=== PATIENT | male | born 1935 | race Caucasian/White ===

== ENCOUNTER → 2017-01-14 | Outpatient (CLI) | payer BC ==
[~2017-01-14] MED LIST: ALL300 PO; AMLO10TA4 PO; ASPEC81 PO; ASPI81TA28 PO; CLOP1TAB15 PO; CRDCD180 PO; LPT/40 PO; MISCCAP80 PO; NTRGSL/4 UT; OMEP40CA PO; PANT40TA2 PO; RANI150T3 PO; SILD100T PO; TNR25 PO
[2017-01-14 12:21] LABS: BASO % 0.3 %; BASO ABS # 0.02 K/uL (0-0.2); COMPLETE YES; EOS % 6.9 %; HEMATOCRIT 42.4 % (42-52); IG% 0.1 %; LYMPH ABS # 2.28 K/uL (1.2-3.4); MEAN CELL VOLUME 94.4 fL (80-100); MEAN CORPUSCULAR HEMOGLOBIN 32.7 pg (25-34); MEAN CORPUSCULAR HGB CONC 34.7 g/dl (32-36); MONO % 11.6 %; NEUT % 48.1 %; PLATELET COUNT 172 K/uL (130-400); RED BLOOD COUNT 4.49 M/uL (4.7-6.1); WHITE BLOOD COUNT 6.91 K/uL (4.8-10.8)
[2017-01-14 17:41] LABS: ALT/SGPT 17 U/L (12-78); BLOOD UREA NITROGEN 37 mg/dl (7-18); BUN/CREATININE RATIO 17.4 (10-20); CALCIUM 9.4 mg/dl (8.5-10.1); CARBON DIOXIDE 27 mmol/L (21-32); CHLORIDE 106 mmol/L (98-107); GLUCOSE 82 mg/dl (70-99); POTASSIUM 4.2 mmol/L (3.5-5.1); SODIUM 142 mmol/L (136-145)
[2017-01-14 17:45] LABS: ALB/GLOB RATIO 1.2 (0.9-2); ALKALINE PHOSPHATASE 112 U/L (45-117); AST/SGOT 18 U/L (15-37)
== END | disposition home or self-care (01) ==
LOC: C.LABPBG 10:44
PROVIDERS: ATTEND Internal Medicine Geriatric Medicine
DX: I25.10 Atherosclerotic heart disease of native coronary artery without angina pectoris (principal); I12.9 Hypertensive chronic kidney disease with stage 1 through stage 4 chronic kidney disease, or unspecified chronic kidney disease; N18.9 Chronic kidney disease, unspecified; E78.5 Hyperlipidemia, unspecified; E55.9 Vitamin D deficiency, unspecified; R10.9 Unspecified abdominal pain; R06.02 Shortness of breath

== ENCOUNTER → 2017-01-16 | Outpatient (CLI) | payer BC ==
--- NOTE | 2017-01-16 10:04 | DIAGNOSTIC IMAGING REPORT ---
CHEST 2 VIEWS ROUTINE CLINICAL HISTORY: Shortness of breath on exertion. COMPARISON STUDY: Chest radiograph March 20, 2015. FINDINGS: Mild lung hyperexpansion is noted. There is no pneumothorax or pleural effusion. There is no consolidation to suggest pneumonia. There is no evidence of pulmonary edema. Extensive anterior osteophytosis is noted on lateral projection. Cardiomediastinal silhouette is stable. IMPRESSION: No acute findings. No change in appearance of the chest. Electronically signed by: Star Daily M.D. 01/16/2017 10:02 AM Dictated Date/Time: 01/16/2017 10:01 AM
--- NOTE | 2017-01-16 10:31 | DIAGNOSTIC IMAGING REPORT ---
ABDOMINAL ULTRASOUND COMPLETE HISTORY: Generalized abdominal pain.. COMPARISON: Abdominal MRI 07/15/2013. Abdomen and pelvis CT 05/03/2013. FINDINGS: Pancreas: The pancreas demonstrates a normal echotexture. Liver: The liver is echogenic consistent with fatty change. Gallbladder: No gallbladder wall thickening. No gallstones. CBD: 5 mm. Kidneys: The right kidney measures 11.3 cm and the left kidney measures 10.6 cm. No hydronephrosis. Multiple bilateral renal cysts are again noted. The largest on the right measures 3.8 cm. The largest left renal cyst measures 6.9 cm and demonstrates a single thin septation. Spleen: Normal in size. Aorta: Normal in caliber. IMPRESSION: 1. Normal gallbladder. No gallstones. 2. Bilateral renal cysts. 3. Mild hepatic steatosis. Electronically signed by: Scar Walsh M.D. 01/16/2017 10:29 AM Dictated Date/Time: 01/16/2017 10:27 AM
== END | disposition home or self-care (01) ==
LOC: C.ULTRBC 09:02
PROVIDERS: ATTEND Internal Medicine Geriatric Medicine
DX: R06.02 Shortness of breath (principal); R10.9 Unspecified abdominal pain; N28.1 Cyst of kidney, acquired

== ENCOUNTER 2017-01-23 16:50 | Emergency (ER) | payer BC ==
[~2017-01-23] VITALS: Ht 170.2 cm; Wt 74.3 kg
[~2017-01-23 16:50] MED LIST changes: -ALL300 PO; -AMLO10TA4 PO; -ASPI81TA28 PO; -MISCCAP80 PO; -PANT40TA2 PO; -RANI150T3 PO; -TNR25 PO
[2017-01-23 16:56] VITALS: TEMP 36.7; Ht 170.2 cm; Wt 74.3 kg
[2017-01-23] MEDS ORDERED: ASPIRIN 81 MG CHEW PO STA (17:10)
[2017-01-23] MEDS ORDERED: ALUMINUM/MAGNESIUM SUSP 30 ML UDC PO STA (17:10)
--- NOTE | 2017-01-23 17:31 | EMERGENCY ROOM VISIT NOTE ---
History Report prepared by Gilbert: Van Franco Under the Supervision of: Dr. Almas Hogan D.O. First contact with patient: 16:58 Chief Complaint: CHEST PAIN Stated Complaint: DISCOMFORT IN CHEST, SOB, PAIN IN LEFT ARM/NECK Nursing Triage Summary: Triage note: Pt reports for the past several days he has had left chest heaviness. pt reports today left neck pain. pt reports "my breathing is getting bad." pt reports hx of three stents. History of Present Illness The patient is an 81 year old male who presents to the Emergency Room with complaints of persistent chest pain that started 3 days ago. The patient notes that he has had a few episodes that were similar to this episode in the past. He describes the discomfort as a pressure in his chest. He also complains of worsening shortness of breath, neck pain, left arm pain, and swelling in his left hand and around the top of his socks. The patient also notes he has had abdominal discomfort for the past few months and has been following up with a doctor for the discomfort. The patient states he has had a cough and has been feeling cold for the past few days. The patient denies vomiting or swelling or pain in his right arm. Source of History: patient Onset: 3 days ago Position: chest Quality: pressure Timing: other (persistent) Associated Symptoms: + SOB, + abdominal pain, + cough, + neck pain, No vomiting Note: Other associated symptoms: left arm pain and swelling in left hand and around top of his socks, feels cold Denies: swelling or pain in his right arm Review of Systems See HPI for pertinent positives & negatives. A total of 10 systems reviewed and were otherwise negative. Past Medical & Surgical Medical Problems: (1) Angina (2) Appendectomy (3) Coronary artery disease (4) History of stent, anterior descending branch of left coronary artery (5) HTN (hypertension) (6) HYPERLIPIDEMIA NEC/NOS (7) PERCUTANEOUS TRANSLUM CORON ANGIOPLASTY STATUS (8) Tonsillectomy (9) Urolithiasis Family History Heart disease Hypertension Social History Smoking Status: Never Smoker Alcohol Use: none Marital Status: Housing Status: lives with significant other Occupation Status: retired Current/Historical Medications Scheduled Allopurinol (Allopurinol), 300 MG PO DAILY Amlodipine Besylate (Norvasc), 10 MG PO DAILY Aspirin (Aspirin Ec), 81 MG PO DAILY Atenolol (Atenolol), 25 MG PO DAILY Atorvastatin (Lipitor), 40 MG PO Q2D Nitroglycerin (Nitrostat), 0.4 MG UT PRN Pantoprazole (Pantoprazole Sodium), 40 MG PO DAILY Probiotic Product (Probiotic), 1 CAP PO DAILY Ranitidine Hcl (Zantac), 150 MG PO BID Sildenafil Citrate (Viagra), 100 MG PO PRN Allergies Coded Allergies: Metoprolol (Verified Allergy, Mild, 11/17/09) Physical Exam Vital Signs Date Time Temp Pulse Resp B/P Pulse Ox O2 Delivery O2 Flow Rate FiO2 01/23/17 19:17 53 25 133/62 95 Room Air 01/23/17 18:48 53 14 135/59 95 Room Air 01/23/17 18:43 94 Room Air 01/23/17 17:15 63 01/23/17 17:03 63 161/74 95 01/23/17 16:56 36.7 62 20 95 Room Air Physical Exam GENERAL: Patient is awake alert in no acute distress patient is resting comfortably and showing no signs of anxiety EYES: The conjunctivae are clear. The pupils are round and reactive. EARS, NOSE, MOUTH AND THROAT: The nose is without any evidence of any deformity. Mucous membranes are moist tongue is midline NECK: The neck is nontender and supple. RESPIRATORY: Scattered rhonchi throughout noted, no tachypnea or conversational dyspnea noted. CARDIOVASCULAR: Ectopy noted to oscillation, no definite murmurs appreciated GASTROINTESTINAL: The abdomen is soft. Bowel sounds are present in all quadrants. Abdomen is nontender MUSCULOSKELETAL/EXTREMITIES: There is no evidence of gross deformity full range of motion is noted in the hips and shoulders SKIN: Pedal edema bilaterally, no signs of cellulitis. NEUROLOGIC: Patient is awake alert and oriented x3 Medical Decision & Procedures ER Provider Diagnostic Interpretation: Radiology results as stated below per my review and radiologist interpretation: LEFT UPPER EXTREMITY VENOUS DOPPLER ULTRASOUND CLINICAL HISTORY: Left upper extremity pain and swelling. COMPARISON STUDY: No previous studies for comparison. FINDINGS: The left internal jugular, subclavian, axillary, brachial, basilic, radial and ulnar veins were patent. IMPRESSION: No deep venous thrombus within the left upper extremity. Electronically signed by: Star Daily M.D. 01/23/2017 6:52 PM Dictated Date/Time: 01/23/2017 6:51 PM CHEST ONE VIEW PORTABLE CLINICAL HISTORY: Chest pain. COMPARISON STUDY: Chest radiograph January 16, 2017. FINDINGS: Lung volumes are normal. There is no consolidation to suggest pneumonia. Mild left basilar opacity favors atelectasis. Mild cardiomegaly is unchanged and there is no evidence of pulmonary edema. There is no pneumothorax or pleural effusion. IMPRESSION: No acute cardiopulmonary findings. Electronically signed by: Star Daily M.D. 01/23/2017 5:58 PM Dictated Date/Time: 01/23/2017 5:57 PM Laboratory Results 01/23/17 17:35 Red Blood Count 4.39, Mean Corpuscular Volume 92.9, Mean Corpuscular Hemoglobin 33.0, Mean Corpuscular Hemoglobin Concent 35.5, Mean Platelet Volume 10.4, Neutrophils (%) (Auto) 63.5, Lymphocytes (%) (Auto) 18.8, Monocytes (%) (Auto) 12.3, Eosinophils (%) (Auto) 5.0, Basophils (%) (Auto) 0.3, Neutrophils # (Auto ) 4.60, Lymphocytes # (Auto) 1.36, Monocytes # (Auto) 0.89, Eosinophils # (Auto ) 0.36, Basophils # (Auto) 0.02 01/23/17 17:35 Test 01/23/17 17:35 White Blood Count 7.24 K/uL (4.8-10.8) Red Blood Count 4.39 M/uL (4.7-6.1) Hemoglobin 14.5 g/dL (14.0-18.0) Hematocrit 40.8 % (42-52) Mean Corpuscular Volume 92.9 fL (80-100) Mean Corpuscular Hemoglobin 33.0 pg (25-34) Mean Corpuscular Hemoglobin Concent 35.5 g/dl (32-36) Platelet Count 165 K/uL (130-400) Mean Platelet Volume 10.4 fL (7.4-10.4) Neutrophils (%) (Auto) 63.5 % Lymphocytes (%) (Auto) 18.8 % Monocytes (%) (Auto) 12.3 % Eosinophils (%) (Auto) 5.0 % Basophils (%) (Auto) 0.3 % Neutrophils # (Auto) 4.60 K/uL (1.4-6.5) Lymphocytes # (Auto) 1.36 K/uL (1.2-3.4) Monocytes # (Auto) 0.89 K/uL (0.11-0.59) Eosinophils # (Auto) 0.36 K/uL (0-0.5) Basophils # (Auto) 0.02 K/uL (0-0.2) RDW Standard Deviation 46.5 fL (36.4-46.3) RDW Coefficient of Variation 13.6 % (11.5-14.5) Immature Granulocyte % (Auto) 0.1 % Immature Granulocyte # (Auto) 0.01 K/uL (0.00-0.02) Prothrombin Time 11.4 SECONDS (9.0-12.0) Prothromb Time International Ratio 1.1 (0.9-1.1) Activated Partial Thromboplast Time 30.6 SECONDS (21.0-31.0) Partial Thromboplastin Ratio 1.2 Anion Gap 6.0 mmol/L (3-11) Est Creatinine Clear Calc Drug Dose 23.6 ml/min Estimated GFR () 29.8 Estimated GFR (Non- 25.7 BUN/Creatinine Ratio 14.4 (10-20) Calcium Level 8.9 mg/dl (8.5-10.1) Total Bilirubin 0.8 mg/dl (0.2-1) Direct Bilirubin 0.2 mg/dl (0-0.2) Aspartate Amino Transf (AST/SGOT) 13 U/L (15-37) Alanine Aminotransferase (ALT/SGPT) 17 U/L (12-78) Alkaline Phosphatase 112 U/L (45-117) Total Creatine Kinase 83 U/L (39-308) Creatine Kinase MB 1.2 ng/ml (0.5-3.6) Creatine Kinase MB Ratio 1.4 (0-3.0) Troponin I < 0.015 ng/ml (0-0.045) Total Protein 7.2 gm/dl (6.4-8.2) Albumin 3.8 gm/dl (3.4-5.0) Lipase 146 U/L (73-393) Laboratory results per my review. Medications Administered Medications (Trade) Dose Ordered Sig/Emy Route Start Time Stop Time Status Last Admin Dose Admin Aspirin (Aspirin Chew) 324 mg NOW STAT PO 01/23/17 17:10 01/23/17 17:11 DC 01/23/17 17:59 324 MG Al Hydroxide/Mg Hydroxide (Maalox Susp) 30 ml NOW STAT PO 01/23/17 17:10 01/23/17 17:11 DC 01/23/17 17:55 30 ML ECG Indication: chest pain Rate (beats per minute): 65 Rhythm: sinus rhythm Findings: PVC (frequent), other (no acute ST segment abnormality) Comparison ECG Date: Resolution of previously noted lateral ST depressions when compared to EKG from March 20, 2015. ED Course 1650: The patient was evaluated in room B11. A complete history and physical examination were performed. 1709: Ordered Maalox Susp 30 ml PO. Aspirin 324 mg PO. 1905: At this time, I reevaluated the patient and he was resting. I discussed the option of coming into the hospital with him. However, he refused and stated that he wanted to go home. I discussed the results and treatment plan with him. He verbalized agreement of the treatment plan. The patient was discharged home. Medical Decision Differential diagnosis: Etiologies such as cardiac ischemia, aortic dissection, pulmonary embolism, pneumonia, pneumothorax, musculoskeletal, infections, pericarditis, myocarditis , esophageal rupture, gastrointestinal, as well as others were entertained. Nursing notes reviewed. The patient is an 81-year-old male who presented to the emergency department for an evaluation of left-sided chest discomfort which radiated to his neck. The patient's EKG did not show any acute ST segment abnormalities but did show some resolution of previously noted ST Abnormalities from previous EKG. His cardiac biomarkers were negative. I discussed the patient's laboratory and radiographic studies with him. I also discussed the limitations of the emergency department workup for chest pain with him. I recommended that he have an evaluation by the hospitalist for further inpatient management of his chest discomfort and rule out cardiac cause however the patient did not wish to stay in the hospital. He was encouraged to rest and avoid any strenuous activity. He was encouraged to call his primary care physician to schedule a follow-up appointment and possible stress testing. He was also encouraged to return to the emergency department immediately if symptoms change worsen or the need arises. Impression Primary Impression: Left sided chest pain Scribe Attestation The scribe's documentation has been prepared under my direction and personally reviewed by me in its entirety. I confirm that the note above accurately reflects all work, treatment, procedures, and medical decision making performed by me. Departure Information Dispostion Home / Self-Care Prescriptions Ranitidine Hcl (ZANTAC) 150 Mg Tab 150 MG PO BID, #60 TAB Prov: Almas Hogan, DO 01/23/17 Referrals Maximo Patterson M.D. (PCP) Forms HOME CARE DOCUMENTATION FORM, IMPORTANT VISIT INFORMATION Patient Instructions ED Chest Pain Atypical Unkn Cause, My [facility] Additional Instructions Call your family in the morning to schedule a follow-up appointment. Rest and avoid any strenuous activity. Continue all other medications as prescribed. Discuss the possibility with your family doctor the may require a stress test or further tests to ensure this is not your heart. Return to the emergency department immediately if symptoms change worsen or the need arises. Continue using Maalox as directed for symptomatically relief
[2017-01-23] MEDS ORDERED: TNR25 PO (17:58)
[2017-01-23] MEDS ORDERED: AMLO10TA4 PO (17:58)
[2017-01-23] MEDS ORDERED: ASPI81TA28 PO (17:58)
[2017-01-23] MEDS ORDERED: ALL300 PO (17:58)
[2017-01-23] MEDS ORDERED: PANT40TA2 PO (17:58)
--- NOTE | 2017-01-23 18:00 | DIAGNOSTIC IMAGING REPORT ---
CHEST ONE VIEW PORTABLE CLINICAL HISTORY: Chest pain. COMPARISON STUDY: Chest radiograph January 16, 2017. FINDINGS: Lung volumes are normal. There is no consolidation to suggest pneumonia. Mild left basilar opacity favors atelectasis. Mild cardiomegaly is unchanged and there is no evidence of pulmonary edema. There is no pneumothorax or pleural effusion. IMPRESSION: No acute cardiopulmonary findings. Electronically signed by: Star Daily M.D. 01/23/2017 5:58 PM Dictated Date/Time: 01/23/2017 5:57 PM
[2017-01-23] MEDS ORDERED: MISCCAP80 PO (18:02)
[2017-01-23 18:08] LABS: BASO % 0.3 %; BASO ABS # 0.02 K/uL (0-0.2); COMPLETE YES; HEMATOCRIT 40.8 % (42-52); IG% 0.1 %; LYMPH % 18.8 %; LYMPH ABS # 1.36 K/uL (1.2-3.4); MEAN CELL VOLUME 92.9 fL (80-100); MEAN CORPUSCULAR HGB CONC 35.5 g/dl (32-36); MEAN PLATELET VOLUME 10.4 fL (7.4-10.4); MONO % 12.3 %; NEUT % 63.5 %; PLATELET COUNT 165 K/uL (130-400); RED BLOOD COUNT 4.39 M/uL (4.7-6.1); WHITE BLOOD COUNT 7.24 K/uL (4.8-10.8)
[2017-01-23 18:19] LABS: INR 1.1 (0.9-1.1); PARTIAL THROMBOPLASTIN RATIO 1.2; PROTHROMBIN TIME (PATIENT) 11.4 SECONDS (9.0-12.0)
[2017-01-23 18:34] LABS: ALT/SGPT 17 U/L (12-78); AST/SGOT 13 U/L (15-37); BLOOD UREA NITROGEN 33 mg/dl (7-18); BUN/CREATININE RATIO 14.4 (10-20); CALCIUM 8.9 mg/dl (8.5-10.1); CARBON DIOXIDE 27 mmol/L (21-32); CHLORIDE 109 mmol/L (98-107); GLUCOSE 91 mg/dl (70-99); POTASSIUM 3.9 mmol/L (3.5-5.1); SODIUM 142 mmol/L (136-145)
[2017-01-23 18:39] LABS: ALKALINE PHOSPHATASE 112 U/L (45-117); CKMB/CK RATIO 1.4 (0-3.0)
[2017-01-23 18:43] VITALS: O2SAT 94
--- NOTE | 2017-01-23 18:54 | DIAGNOSTIC IMAGING REPORT ---
LEFT UPPER EXTREMITY VENOUS DOPPLER ULTRASOUND CLINICAL HISTORY: Left upper extremity pain and swelling. COMPARISON STUDY: No previous studies for comparison. FINDINGS: The left internal jugular, subclavian, axillary, brachial, basilic, radial and ulnar veins were patent. IMPRESSION: No deep venous thrombus within the left upper extremity. Electronically signed by: Star Daily M.D. 01/23/2017 6:52 PM Dictated Date/Time: 01/23/2017 6:51 PM
[2017-01-23] MEDS ORDERED: RANI150T3 PO (19:15)
[2017-01-23 19:17] VITALS: BP 133/62; PULSE 53; O2SAT 95
== END 2017-01-23 19:20 | disposition home or self-care (01) ==
LOC: C.EDB 16:52
DX: R07.9 Chest pain, unspecified (principal); Z95.5 Presence of coronary angioplasty implant and graft; E78.5 Hyperlipidemia, unspecified; Z87.442 Personal history of urinary calculi; Z82.49 Family history of ischemic heart disease and other diseases of the circulatory system; Z79.82 Long term (current) use of aspirin; Z79.899 Other long term (current) drug therapy

== ENCOUNTER → 2017-07-03 | Outpatient (CLI) | payer BC ==
[~2017-07-03] MED LIST changes: +ALL300 PO; +AMLO10TA4 PO; -ASPEC81 PO; +ASPI81TA28 PO; -CLOP1TAB15 PO; -CRDCD180 PO; +MISCCAP80 PO; -OMEP40CA PO; +PRT/40 PO; +RANI150T3 PO; +TNR25 PO
[2017-07-03 14:41] LABS: BASO % 0.4 %; BASO ABS # 0.03 K/uL (0-0.2); COMPLETE YES; EOS % 1.6 %; HEMATOCRIT 41.1 % (42-52); IG% 0.3 %; LYMPH % 31.4 %; LYMPH ABS # 2.11 K/uL (1.2-3.4); MEAN CELL VOLUME 94.7 fL (80-100); MEAN CORPUSCULAR HEMOGLOBIN 33.6 pg (25-34); MEAN CORPUSCULAR HGB CONC 35.5 g/dl (32-36); MONO % 12.2 %; NEUT % 54.1 %; PLATELET COUNT 168 K/uL (130-400); RED BLOOD COUNT 4.34 M/uL (4.7-6.1); WHITE BLOOD COUNT 6.73 K/uL (4.8-10.8)
[2017-07-03 16:03] LABS: BLOOD UREA NITROGEN 49 mg/dl (7-18); CALCIUM 9.4 mg/dl (8.5-10.1); CARBON DIOXIDE 26 mmol/L (21-32); CHLORIDE 107 mmol/L (98-107); CHOLESTEROL 121 mg/dl (0-200); GLUCOSE 86 mg/dl (70-99); POTASSIUM 3.8 mmol/L (3.5-5.1); SODIUM 142 mmol/L (136-145); URIC ACID 4.8 mg/dl (2.6-7.2)
[2017-07-03 16:06] LABS: CHOLESTEROL/HDL RATIO 2.6; HDL CHOLESTEROL 47 mg/dl; LDL CHOLESTEROL CALCULATED 28 mg/dl; TRIGLYCERIDES 232 mg/dl (0-150); VERY LOW DENSITY LIPOPROT CALC 46 mg/dl
== END | disposition home or self-care (01) ==
LOC: C.LAB 13:40
PROVIDERS: ATTEND Internal Medicine Geriatric Medicine
DX: I25.10 Atherosclerotic heart disease of native coronary artery without angina pectoris (principal); I10 Essential (primary) hypertension; N18.9 Chronic kidney disease, unspecified; R78.5 Finding of other psychotropic drug in blood; M10.9 Gout, unspecified; E55.9 Vitamin D deficiency, unspecified; R06.02 Shortness of breath